=== PATIENT | male | born 1960 | race Caucasian/White ===

== ENCOUNTER 2024-01-17 16:37 | Emergency (ER) | payer SELFPAY ==
[2024-01-17 16:45] VITALS: BP 163/94
[2024-01-17 17:07] LABS: % Basophils 0.6 % (0-2); % Eosinophils 4.9 % (0-6); % Immature Granulocytes 0.3 % (0-0.5); % Lymphocytes 30.7 % (20.5-51.1); % Monocytes 10.1 % (1.7-9.3); % Neutrophils 53.4 % (42.2-75.2); Absolute Eosinophils 0.4 10^3/uL (0-0.7); Absolute Lymphocytes 2.2 10^3/uL (1.2-3.4); Absolute Monocytes 0.7 10^3/uL (0.1-0.6); Absolute Neutrophils 3.8 10^3/uL (1.4-6.5); Hematocrit 45.7 % (39.0-52.0); Hemoglobin 15.3 g/dL (13.0-18.0); Mean Corp Hgb Conc. 33.5 g/dL (33.0-37.0); Mean Corpuscular Hgb 32.4 pg (27.0-31.0); Mean Corpuscular Volume 96.8 fL (80.0-94.0); Mean Platelet Volume 10.7 fL (7.4-10.4); Nucleated Red Blood Cells % 0 % (-); Platelet Count 194 10^3/uL (130-400); Red Blood Cell Count 4.72 10^6/uL (4.70-6.10); Red Cell Dist. Width 11.9 % (11.5-14.5); White Blood Cell Count 7.1 10^3/uL (4.8-10.8)
[2024-01-17 17:24] LABS: ALT (SGPT) 30 U/L (0-50); AST (SGOT) 24 U/L (17-59); Albumin 4.4 g/dl (3.5-5.0); Alkaline Phosphatase 62 U/L (38-126); Blood Urea Nitrogen 15 mg/dl (9-20); Calcium 9.2 mg/dl (8.4-10.2); Carbon Dioxide 25 mmol/L (22-30); Chloride 105 mmol/L (98-107); Glucose 96 mg/dl (70-99); Potassium 3.9 mmol/L (3.5-5.1); Sodium 135 mmol/L (135-145); Total Protein 7.5 g/dl (6.3-8.2); eGFR > 60.00
[2024-01-17 18:20] VITALS: BP 144/87
[2024-01-17 19:04] VITALS: BP 156/89
--- NOTE | 2024-01-17 19:15 | ED.GENMED ---
History of Present Illness
General
Chief Complaint: Dizziness
Source: patient
Exam Limitations: none
Time Seen by Provider: 01/17/24 18:54
Travel History
Have you had any contact with someone who has COVID-19?: No
Do you have any symptoms of coronavirus? Fever > 100 degrees, chills, cough, shortness of breath, sore throat, loss of taste or smell, muscle aches, or headache?: No
History of Present Illness
History of Present Illness:
63-year-old male presents for 3 weeks worth of worsening dizziness and ringing in the ears and some hearing loss. He notes slight headache. He notes blurry vision but denies double vision or loss of vision. No neck pain. He does not seek medical
care regularly. He does not take medications regularly. No vomiting. No chest pain or shortness of breath.
Past History
Past History
ED Past Medical History: None
ED Past Surgical History: Orthopedic (Right ankle)
Social History
Tobacco: Non-smoker
Alcohol: Daily
Drug: None
Personal:
Living: with family
Employment: Employed
Phy Exam
Physical Exam
Physical Exam:
General: Well-appearing male no acute respiratory distress
HEENT: Normocephalic atraumatic pupils equal round reactive to light external auditory canal slightly occluded by cerumen blood portions of TMs visualized within normal limits
Heart: Regular rate and rhythm no murmurs
Lungs: Clear no wheezing or rales
Neurologic: Alert and oriented no facial asymmetry or slurred speech extraocular's are intact no drift finger-nose intact
Musculoskeletal exam: No tenderness over the cervical spine
Course
Orders/Labs/Results
Orders:
Orders
01/17/24 16:52
Complete Blood Count/With Diff Urgent
Comprehensive Metabolic Panel Urgent
01/17/24 19:12
CT Head W/o Iv Contrast Urgent
Comment:
Reason For Exam: dizzy
Abnormal Lab Results
01/17/24
16:52
MCV 96.8 H fL
(80.0-94.0)
MCH 32.4 H pg
(27.0-31.0)
MPV 10.7 H fL
(7.4-10.4)
Absolute Monos (auto) 0.7 H 10^3/uL
(0.1-0.6)
Monocytes % 10.1 H %
(1.7-9.3)
01/17/24 16:52
01/17/24 16:52
Vital Signs
Initial and Last Documented VS:
Initial Vital Signs
Temp Pulse Resp BP Pulse Ox
98.0 F 72 16 163/94 98
01/17/24 16:45 01/17/24 16:45 01/17/24 16:45 01/17/24 16:45 01/17/24 16:45
Last Documented Vital Signs
Temp Pulse Resp BP Pulse Ox
98.0 F 85 20 156/89 96
01/17/24 16:45 01/17/24 19:12 01/17/24 19:12 01/17/24 19:04 01/17/24 19:12
MDM/Problems Addressed
Differential Diagnosis Includes:
Dizziness with blurry vision ringing in the ears. He notes some decreased hearing out of the right ear. This has been ongoing for 3 weeks worse in the morning seems to be better at night. Atypical for positional vertigo. Will order CT of head to
evaluate for any structural abnormalities of the brain. Will check labs to check for electrolyte abnormality or hyperglycemia.
*Critical Care Note
Total Time (30-74mins, 75-104mins- exclusive of procedures): Not Applicable
Update Note
Update Note:
CT head negative labs reviewed without significant finding. Patient has dizziness ringing in the ears, will refer to ENT for further evaluation. No indication for any further intervention at this point. This is been ongoing for 3 weeks. Do not
suspect stroke. Stable for discharge
ED Attending Note
-
Portions of this chart may have been created with voice recognition software.� Occasional wrong word or��sound alike� substitutions may have occurred due to the inherent limitations of voice recognition software.
Discharge Plan
Departure
Patient Disposition: Home (Routine Discharge)
Date of Disposition: 01/17/24
Time of Disposition: 21:33
Patient with high blood pressure during this ER visit?: No
Discharge Problem:
Dizziness
Instructions: Dizziness
Prescriptions:
New
meclizine 25 mg tablet
25 mg PO TID PRN (Reason: dizziness) Qty: 10 0RF
Referrals:
NONE,* [Family Provider] -
Mihceal Partida MD [Active] -
Activity Restrictions/Additional Instructions:
Please follow-up with ENT for further evaluation. Return for worsening symptoms otherwise. You may use meclizine if needed for dizziness.
Interventions
Interventions:
*Risk Screen - Suicide Last Done: 01/17/24 18:00
*General Assessment Last Done: 01/17/24 18:00
*Neglect/Abuse Screening Last Done: 01/17/24 18:00
*ED COVID-19 Vaccine History Last Done: 01/17/24 16:45
ED- Neurological Assessment Last Done: 01/17/24 18:00
--- NOTE | 2024-01-17 21:30 | EDRN ---
Updated patient on CT results and blood work aware waiting for the provider to come in and go over everything with them.
--- NOTE | 2024-01-17 22:01 | EDRN ---
FLOWER Carlson spoke with patient about results and patient to be discharged
== END 2024-01-17 22:02 | disposition home or self-care (01) ==
LOC: EMR 16:37
PROVIDERS: Emergency Medicine; EMERGENCY PHYSICIAN Emergency Medicine
DX: R42 Dizziness and giddiness (principal)
CPT/HCPCS: 99284; 70450; 80053; 85025